=== PATIENT | male | born 1985 | race Hispanic/Latino ===

== ENCOUNTER 2023-02-26 04:00 | Day surgery (SDC) | payer OTHER ==
[~2023-02-26] VITALS: Ht 167.6 cm; Wt 90.7 kg
[2023-02-26] VITALS (188 sets, daily range): BP systolic 90–157; BP diastolic 48–112
[2023-02-26 08:26] LABS: BASO% 0.8 % (0-3); EOS% 3.4 % (0-8); HEMATOCRIT 47.9 % (39.0-50.0); HEMOGLOBIN 16.7 g/dl (14.0-18.0); IMMATURE GRANULOCYTES 0.5 % (0.0-5.0); LYMPH% 42.2 % (15-41); MEAN CELL VOLUME 86.6 fL CALC (80.0-100.0); MEAN CORPUSCULAR HGB 30.2 pG CALC (26.0-32.0); MEAN CORPUSCULAR HGB CONC 34.9 g/dL CAL (32.0-36.0); MONO% 15.4 % (2-13); NEUT# 1.42 thou/uL (1.82-7.42); NEUT% 37.7 % (42-76); RED BLOOD COUNT 5.53 mill/uL (4.70-6.10); RED CELL DISTRI WIDTH 11.8 % (11.5-15.5)
[2023-02-26 08:40] LABS: ALKALINE PHOSPHATASE 80 u/l (38-126); ANION GAP 12 (6-22 (CALC)); BILIRUBIN, TOTAL 0.6 mg/dL (0.2-1.3); BUN 16 mg/dL (9-20); BUN/CREATININE RATIO 17 (12-20 (CALC)); CARBON DIOXIDE 27 mmol/l (22-30); CHLORIDE 102 mmol/l (95-108); GFR FOR AFR.AMER. > 60 ML/MIN (>=60 (CALC)); GFR OTHER RACES > 60 ML/MIN (>=60 (CALC)); SGOT/AST 68 u/l (17-59); SODIUM 137 mmol/l (137-146); TOTAL PROTEIN 7.1 g/dL (6.3-8.2)
[2023-02-26] MEDS ORDERED: KLONOPIN2 MG PO (15:02)
[2023-02-26] MEDS ORDERED: NALTREXONE50 MG PO (15:02)
[2023-02-26] MEDS ORDERED: CLONIDINE0.1 MG PO (15:02)
[2023-02-27 03:39] VITALS: BP 139/84
[2023-02-27 04:55] LABS: BASO% 0.1 % (0-3); HEMATOCRIT 50.7 % (39.0-50.0); HEMOGLOBIN 18.2 g/dl (14.0-18.0); IMMATURE GRANULOCYTES 0.6 % (0.0-5.0); LYMPH% 10.5 % (15-41); MEAN CELL VOLUME 85.6 fL CALC (80.0-100.0); MEAN CORPUSCULAR HGB 30.7 pG CALC (26.0-32.0); MEAN CORPUSCULAR HGB CONC 35.9 g/dL CAL (32.0-36.0); MONO% 2.1 % (2-13); NEUT# 9.2 thou/uL (1.82-7.42); NEUT% 86.7 % (42-76); RED BLOOD COUNT 5.92 mill/uL (4.70-6.10); RED CELL DISTRI WIDTH 11.6 % (11.5-15.5)
[2023-02-27 05:17] LABS: ALBUMIN 4.4 g/dL (3.2-5.0); ALKALINE PHOSPHATASE 85 u/l (38-126); BUN 16 mg/dL (9-20); BUN/CREATININE RATIO 16 (12-20 (CALC)); CHLORIDE 108 mmol/l (95-108); GFR FOR AFR.AMER. > 60 ML/MIN (>=60 (CALC)); GFR OTHER RACES > 60 ML/MIN (>=60 (CALC)); MAGNESIUM 2.1 mg/dL (1.6-2.3); SGOT/AST 67 u/l (17-59); SODIUM 141 mmol/l (137-146); TOTAL PROTEIN 7.8 g/dL (6.3-8.2)
[2023-02-27 05:18] LABS: ANION GAP 17 (6-22 (CALC)); CARBON DIOXIDE 20 mmol/l (22-30)
[2023-02-27 07:00] VITALS: BP 129/84
== END 2023-02-27 16:01 | disposition home or self-care (01) | DRG 897 ==
LOC: MS2 04:00 → ANR 04:00 → MS2 16:46 → ANR 02-27 16:01
PROVIDERS: ATTEND Anesthesiology
DX: F11.20 Opioid dependence, uncomplicated (principal)
CPT/HCPCS: J2354; J3475